=== PATIENT | male | born 1965 | race Two or more races ===

== ENCOUNTER 2018-02-20 04:28 | Emergency (ER) | payer SELFPAY ==
[~2018-02-20] VITALS: Ht 165.1 cm; Wt 68.5 kg
[~2018-02-20 04:28] MED LIST: IBUPROFEN600 MG ORAL; IBUPROFEN600 MG PO; METFORMIN HCL500 M1 ORAL; NKM; NORCO 5-325 TA1 EACH ORAL; VALIUM5 MG ORAL
[2018-02-20 05:09] LABS: BASOPHILS % (AUTO) 0.5 % (0.0-2.0); EOSINOPHILS % (AUTO) 1.3 % (0.0-3.0); HEMATOCRIT 42.1 % (42.0-52.0); HEMOGLOBIN 14.6 G/DL (14.2-18.0); LYMPHOCYTES % (AUTO) 7.7 % (20.0-45.0); MEAN CORPUSCULAR VOLUME 91 FL (80-99); MONOCYTES % (AUTO) 8.9 % (1.0-10.0); NEUTROPHILS % (AUTO) 81.6 % (45.0-75.0); PLATELET COUNT 185 K/UL (150-450); RED BLOOD COUNT 4.62 M/UL (4.70-6.10); RED CELL DISTRIBUTION WIDTH 11.6 % (11.6-14.8); WHITE BLOOD COUNT 11.3 K/UL (4.8-10.8)
--- NOTE | 2018-02-20 05:11 | Emergency Room Report ---
History of Present Illness General Chief Complaint: Abdominal Pain Source: Patient (Adam Vazquez DO) Present Illness HPI Patient reports that approximately 4:00 yesterday in the afternoon he had eaten some [place] food About 45 minutes after he began having diffuse abdominal cramping Patient had episode of diarrhea Later on in the evening the lower abdominal pain bilaterally has worsened patient has several more bouts of diarrhea And presents for further evaluation Pain is 6 out of 10 sharp bilateral lower abdomen Denies any vomiting but he is nauseated Denies any fevers or chills denies any blood in the stool (Adam Vazquez DO) Allergies: Coded Allergies: No Known Allergies (Unverified , 05/07/12) Patient History Past Medical History: see triage record Pertinent Family History: none Reviewed Nursing Documentation: PMH: Agreed; PSxH: Agreed (Adam Vazquez DO) Nursing Documentation-PMH Hx Diabetes: Yes (PeaceAdam rodriguez DO) Review of Systems All Other Systems: negative except mentioned in HPI (Adam Vazquez DO) Physical Exam Vital Signs Date Time Temp Pulse Resp B/P (MAP) Pulse Ox O2 Delivery O2 Flow Rate FiO2 02/20/18 04:32 97.9 88 18 124/85 96 Room Air 97.9 Sp02 EP Interpretation: reviewed, normal General Appearance: well appearing, no apparent distress Head: normocephalic, atraumatic Eyes: bilateral eye PERRL, bilateral eye EOMI ENT: hearing grossly normal, normal pharynx, TMs + canals normal, uvula midline Neck: full range of motion, supple, no meningismus, no bony tend Respiratory: lungs clear, normal breath sounds, no rhonchi, no respiratory distress, no retraction, no accessory muscle use Cardiovascular #1: normal peripheral pulses, regular rate, rhythm, no edema, no gallop, no JVD, no murmur Gastrointestinal: normal bowel sounds, soft, no mass, no organomegaly, non- distended, no guarding, no hernia, no pulsatile mass, no rebound, other - Uncomfortable on palpation bilaterally lower abdomen Genitourinary: no CVA tenderness Musculoskeletal: normal inspection Neurologic: oriented x3, responsive, lead presser III-XII nml as tested, motor strength/ tone normal, sensory intact Psychiatric: mood/affect normal Skin: normal color, no rash, warm/dry, palpation normal Lymphatic: normal inspection, no adenopathy (Adam Vazquez DO) Medical Decision Making Diagnostic Impression: Primary Impression: Colitis ER Course With the history exam and presentation, multiple differentials considered, including but not limited to appendicitis, gastritis, cholecystitis, diverticulitis Patient has CT ordered and signed out to oncoming physician for further follow- up and final disposition Labs Test 02/20/18 05:00 White Blood Count 11.3 K/UL (4.8-10.8) Red Blood Count 4.62 M/UL (4.70-6.10) Hemoglobin 14.6 G/DL (14.2-18.0) Hematocrit 42.1 % (42.0-52.0) Mean Corpuscular Volume 91 FL (80-99) Mean Corpuscular Hemoglobin 31.6 PG (27.0-31.0) Mean Corpuscular Hemoglobin Concent 34.6 G/DL (32.0-36.0) Red Cell Distribution Width 11.6 % (11.6-14.8) Platelet Count 185 K/UL (150-450) Mean Platelet Volume 9.2 FL (6.5-10.1) Neutrophils (%) (Auto) 81.6 % (45.0-75.0) Lymphocytes (%) (Auto) 7.7 % (20.0-45.0) Monocytes (%) (Auto) 8.9 % (1.0-10.0) Eosinophils (%) (Auto) 1.3 % (0.0-3.0) Basophils (%) (Auto) 0.5 % (0.0-2.0) Sodium Level 142 MMOL/L (136-145) Potassium Level 3.9 MMOL/L (3.5-5.1) Chloride Level 106 MMOL/L (98-107) Carbon Dioxide Level 31 MMOL/L (21-32) Anion Gap 5 mmol/L (5-15) Blood Urea Nitrogen 17 mg/dL (7-18) Creatinine 0.8 MG/DL (0.55-1.30) Estimat Glomerular Filtration Rate > 60 mL/min (>60) Glucose Level 115 MG/DL (74-106) Calcium Level 8.7 MG/DL (8.5-10.1) Total Bilirubin 0.4 MG/DL (0.2-1.0) Aspartate Amino Transf (AST/SGOT) 18 U/L (15-37) Alanine Aminotransferase (ALT/SGPT) 26 U/L (12-78) Alkaline Phosphatase 96 U/L (46-116) Total Protein 7.6 G/DL (6.4-8.2) Albumin 4.0 G/DL (3.4-5.0) Globulin 3.6 g/dL Albumin/Globulin Ratio 1.1 (1.0-2.7) Lipase 210 U/L (73-393) (Adam Vazquez DO) ER Course Hospital Course 52-year-old M presents to ED with abdominal pain Clinical course Patient initially seen and evaluated by Dr Vazquez. please see his note for full history and physical Labs - minimal leukocytosis, electrolytes ok, LFTs normal CT scan shows enteris vs colitis. Discussed findings with the patient. On reassessment he feels better. Asking to be discharged. Patient is safe for discharge. We'll prescribe Flagyl, Bentyl. Recommend close follow-up with PMD I feel this is a highly complex case requiring extensive working including EKG/ Rhythm strip, Xray/CT/US, Blood/urine lab work, repeat exams while in ED, and administration of strong opiates/narcotics for pain control, admission to hospital or close patient follow up. Diagnosis - colitis Stable and discharged to home with Rx Zofran, Bentyl, Flagyl, [place]. Followup with PMD. Return to ED if symptoms recur or worsen Labs Test 02/20/18 05:00 White Blood Count 11.3 K/UL (4.8-10.8) Red Blood Count 4.62 M/UL (4.70-6.10) Hemoglobin 14.6 G/DL (14.2-18.0) Hematocrit 42.1 % (42.0-52.0) Mean Corpuscular Volume 91 FL (80-99) Mean Corpuscular Hemoglobin 31.6 PG (27.0-31.0) Mean Corpuscular Hemoglobin Concent 34.6 G/DL (32.0-36.0) Red Cell Distribution Width 11.6 % (11.6-14.8) Platelet Count 185 K/UL (150-450) Mean Platelet Volume 9.2 FL (6.5-10.1) Neutrophils (%) (Auto) 81.6 % (45.0-75.0) Lymphocytes (%) (Auto) 7.7 % (20.0-45.0) Monocytes (%) (Auto) 8.9 % (1.0-10.0) Eosinophils (%) (Auto) 1.3 % (0.0-3.0) Basophils (%) (Auto) 0.5 % (0.0-2.0) Sodium Level 142 MMOL/L (136-145) Potassium Level 3.9 MMOL/L (3.5-5.1) Chloride Level 106 MMOL/L (98-107) Carbon Dioxide Level 31 MMOL/L (21-32) Anion Gap 5 mmol/L (5-15) Blood Urea Nitrogen 17 mg/dL (7-18) Creatinine 0.8 MG/DL (0.55-1.30) Estimat Glomerular Filtration Rate > 60 mL/min (>60) Glucose Level 115 MG/DL (74-106) Calcium Level 8.7 MG/DL (8.5-10.1) Total Bilirubin 0.4 MG/DL (0.2-1.0) Aspartate Amino Transf (AST/SGOT) 18 U/L (15-37) Alanine Aminotransferase (ALT/SGPT) 26 U/L (12-78) Alkaline Phosphatase 96 U/L (46-116) Total Protein 7.6 G/DL (6.4-8.2) Albumin 4.0 G/DL (3.4-5.0) Globulin 3.6 g/dL Albumin/Globulin Ratio 1.1 (1.0-2.7) Lipase 210 U/L (73-393) (George Parra MD) CT/MRI/US Diagnostic Results CT/MRI/US Diagnostic Results : Imaging Test Ordered: CT A/P Impression Infectious versus inflammatory enterocolitis, predominantly involving the distal small bowel, terminal ileum, right and transverse colon, and rectosigmoid. No free air or fluid collections. Small amount of free fluid. No bowel obstruction. Normal appendix. Old granulomatous disease. (George Parra MD) Last Vital Signs Date Time Temp Pulse Resp B/P (MAP) Pulse Ox O2 Delivery O2 Flow Rate FiO2 02/20/18 04:32 97.9 88 18 124/85 96 Room Air 97.9 (Adam Vazquez DO) Status: improved (George Parra MD) Disposition: HOME, SELF-CARE Condition: Stable Scripts Hydrocodone Bit/Acetaminophen 5-325* (NORCO 5-325*) 1 Each Tablet 1 TAB ORAL Q6H PRN for For Pain, #10 TAB 0 Refills Prov: George Parra MD 02/20/18 Ondansetron Odt* (ZOFRAN ODT*) 4 Mg Tab.rapdis 4 MG BC EVERY 6 HOURS PRN for Nausea & Vomiting, #10 TAB 0 Refills Prov: George Parra MD 02/20/18 Dicyclomine Hcl* (DICYCLOMINE HCL*) 10 Mg Capsule 10 MG PO QID for 5 Days, CAP Prov: George Parra MD 02/20/18 Metronidazole* (FLAGYL*) 500 Mg Tablet 500 MG ORAL THREE TIMES A DAY, #21 TAB Prov: George Parra MD 02/20/18 Referrals: NOT CHOSEN IPA/,REFERRING (PCP) Adam Vazquez DO Feb 20, 2018 05:11 George Parra MD Feb 20, 2018 07:52
[2018-02-20] MEDS ORDERED: Isovue-300 100ml vial INJ PRN (05:15)
[2018-02-20] MEDS ORDERED: Morphine Sulfate 4mg/ml Inj (IV USE ONLY) IVP ONE (05:15)
[2018-02-20 05:20] LABS: ANION GAP 5 mmol/L (5-15); BLOOD UREA NITROGEN 17 mg/dL (7-18); CALCIUM 8.7 MG/DL (8.5-10.1); CARBON DIOXIDE 31 MMOL/L (21-32); CHLORIDE 106 MMOL/L (98-107); CREATININE 0.8 MG/DL (0.55-1.30); POTASSIUM 3.9 MMOL/L (3.5-5.1); SODIUM 142 MMOL/L (136-145)
[2018-02-20 05:24] LABS: ALANINE AMINOTRANSFERASE 26 U/L (12-78); ALBUMIN/GLOBULIN RATIO 1.1 (1.0-2.7); ALKALINE PHOSPHATASE 96 U/L (46-116); ASPARTATE AMINO TRANSFERASE 18 U/L (15-37); BILIRUBIN,TOTAL 0.4 MG/DL (0.2-1.0)
[2018-02-20 05:54] VITALS: BP 134/80
[2018-02-20] MEDS ORDERED: METRONIDAZOLE500 MG ORAL (06:52)
[2018-02-20] MEDS ORDERED: DICYCLOMINE HCL10 MG PO (06:52)
[2018-02-20] MEDS ORDERED: NORCO 5-325 TA1 EACH ORAL (06:52)
[2018-02-20] MEDS ORDERED: ONDANSETRON ODT4 MG BC (06:52)
[2018-02-20 07:02] VITALS: BP 128/74
[2018-02-20 07:03] VITALS: BP 128/74
--- NOTE | 2018-02-20 10:07 | Diagnostic Imaging Report ---
Clinical Indication: Abdominal pain for 2 days after eating bad food Technique: No oral contrast utilized, per emergency room physician request IV administration nonionic contrast. Venous phase spiral acquisition obtained through the abdomen and pelvis. Multiplanar reconstructions were generated. Total dose length product 668.86 mGycm. CTDIvol(s) 12.5 mGy. Dose reduction achieved using automated exposure control Comparison: none Findings: The appendix is normal. There is wall thickening of the distal ileum, which is also mildly distended. There is equivocal mild wall thickening of the ascending colon as well. There is equivocal mild wall thickening of the distal sigmoid colon. There are a few colonic diverticula. No evidence of diverticulitis. No other small bowel distention. No free or loculated intraperitoneal air or fluid is evident. Distal esophagus, stomach, duodenum are unremarkable. The liver, gallbladder, bile ducts, pancreas, spleen, adrenals are unremarkable. There is a small accessory splenule. The kidneys demonstrate bilateral subcentimeter low-attenuation lesions which are too small to characterize. No pelvic mass or adenopathy. No retroperitoneal or mesenteric mass or adenopathy. The included lung bases demonstrate linear scarring or atelectasis. There is a calcified nodule at the right lung base. The bones are unremarkable. Impression: Marked wall thickening and slight distention of the distal ileum, consistent with ileitis. Nonspecific as regards etiology, although distribution raises possibility of Crohn's disease More equivocal wall thickening of the ascending and distal sigmoid:, Could indicate a component of colitis if real. Colonic diverticulosis. No evidence of diverticulitis Subcentimeter low-attenuation renal lesions, too small to characterize, most likely benign simple cysts. No further follow-up necessary Basilar pulmonary parenchymal scarring or atelectasis, calcified right basilar granuloma incidentally noted This agrees with the preliminary interpretation provided overnight by [facility]. The CT scanner at [facility] is accredited by the [employer] and the scans are performed using protocols designed to limit radiation exposure to as low as reasonably achievable to attain images of sufficient resolution adequate for diagnostic evaluation.
== END 2018-02-20 07:04 | disposition home or self-care (01) ==
LOC: EMR 04:48
DX: K52.9 Noninfective gastroenteritis and colitis, unspecified (principal); E11.9 Type 2 diabetes mellitus without complications
CPT/HCPCS: 36415; 74177; 80053; 83690; 85025; 96361; 96374; 96375; 99284; J2270; J2405; Q9967

== ENCOUNTER 2018-05-12 19:42 | Emergency (ER) | payer SELFPAY ==
[~2018-05-12] VITALS: Ht 162.6 cm; Wt 69.4 kg
[~2018-05-12 19:42] MED LIST changes: +DICYCLOMINE HCL10 MG PO; +METRONIDAZOLE500 MG ORAL; +ONDANSETRON ODT4 MG BC
[2018-05-12 20:11] VITALS: BP 107/75
[2018-05-12] MEDS ORDERED: Lidocaine 2% Visc 15ml soln ORAL ONE (20:15)
[2018-05-12] MEDS ORDERED: CLARITIN-D 121 EAC1 ORAL (20:34)
[2018-05-12] MEDS ORDERED: LIDOCAINE VISC100 ML ORAL (20:35)
[2018-05-12 21:41] VITALS: BP 115/75
--- NOTE | 2018-05-12 22:50 | Emergency Room Report ---
History of Present Illness General Chief Complaint: Flu Like Symptoms Source: Patient Present Illness HPI Patient 52-year-old male who presented after several days of increased nasal congestion as well as a sore throat and cough. The patient sick contacts at home with similar symptoms. Patient denies any vomiting. He reports having a nonproductive cough. He denies any fever. He reports having increased nasal bleeding with blowing nose. Allergies: Coded Allergies: No Known Allergies (Unverified , 05/07/12) Patient History Past Medical History: see triage record Reviewed Nursing Documentation: PMH: Agreed; PSxH: Agreed Nursing Documentation-PMH Past Medical History: No History, Except For Hx Diabetes: Yes Review of Systems All Other Systems: negative except mentioned in HPI Physical Exam Vital Signs Date Time Temp Pulse Resp B/P (MAP) Pulse Ox O2 Delivery O2 Flow Rate FiO2 05/12/18 19:52 98.1 79 18 107/75 95 Room Air General Appearance: well appearing, no apparent distress, alert, GCS 15 Head: normocephalic, atraumatic ENT: hearing grossly normal, normal voice, uvula midline, nasal congestion, pharyngeal erythema Neck: full range of motion, supple Respiratory: no respiratory distress, speaking full sentences Cardiovascular #1: normal inspection, normal peripheral pulses Gastrointestinal: normal inspection Musculoskeletal: normal inspection, no calf tenderness Neurologic: normal inspection, alert, oriented x3, responsive, normal gait Psychiatric: normal inspection, mood/affect normal Skin: no rash Medical Decision Making Diagnostic Impression: Primary Impression: Viral respiratory infection ER Course Patient presented for cough. Differential diagnosis included but was not limited to bronchitis, pneumonia, pulmonary embolism, pericarditis, asthma, foreign body. Patient has a benign exam and does not appear to require any further imaging or laboratory testing at this time. Patient presented viral respiratory infection. Patient is given prescription for symptomatically treatment.The patient is advised to follow up with primary care doctor in 1-2 days. Patient is advised to return if any worsening condition or if any changes in status that are concerning. This report is dictated with [employer] wine manager software which may occasionally lead to discrepancies related to use of this software. Last Vital Signs Date Time Temp Pulse Resp B/P (MAP) Pulse Ox O2 Delivery O2 Flow Rate FiO2 05/12/18 21:41 98.2 90 16 115/75 99 Room Air Status: improved Disposition: HOME, SELF-CARE Condition: Stable Scripts Lidocaine HCl 2% Viscous (Lidocaine HCl 2% Viscous) 100 Ml Solution 15 ML ORAL QID, #100 ML Prov: Nura Alcantara MD 05/12/18 Loratadine/Pseudoephedrine (CLARITIN-D 12 HOUR TABLET) 1 Each Tab.er.12h 1 TAB ORAL EVERY 12 HOURS, #30 TAB Prov: Nura Alcantara MD 05/12/18 Referrals: NON PHYSICIAN (PCP) Patient Instructions: Viral Respiratory Infection Nura Alcantara MD May 12, 2018 22:50
== END 2018-05-12 20:46 | disposition home or self-care (01) ==
LOC: EMR 20:28
DX: B34.9 Viral infection, unspecified (principal); E11.9 Type 2 diabetes mellitus without complications
CPT/HCPCS: 99283